=== PATIENT | female | born 1950 | race Caucasian/White ===

== ENCOUNTER → 2020-09-09 | Day surgery (SDC) | payer MEDICARE, OTHER ==
[~2020-09-09] MED LIST: ALENDRONATE SOD70 MG PO; ASCORBIC ACID500 MG PO; CALCIUM + VITA1 EACH PO; CENTRUM ADULTS1 EACH PO; DICLOFENAC SOD100 G1 TOP; ESTRACE42.5 GM VG; IBUPROFEN400 MG PO; JOINT HEALTH T1 EACH PO; MIRALAX17 GM PO; NORCO 5-325 TA1 EACH PO; PROBIOTIC1 EAC2 PO; VITAMIN D310 MC1 PO; ZYRTEC10 M3 PO
== END | disposition home or self-care (01) ==
LOC: FAS 05:59
DX: M24.612 Ankylosis, left shoulder (principal); M75.02 Adhesive capsulitis of left shoulder; M19.90 Unspecified osteoarthritis, unspecified site; Z20.822 Contact with and (suspected) exposure to COVID-19; Z98.890 Other specified postprocedural states; Z90.710 Acquired absence of both cervix and uterus
CPT/HCPCS: 97161; 97530-GP; J1100; J2250; J2704; J2795; J3010; J7120